=== PATIENT | male | born 1960 | race Hispanic/Latino ===

== ENCOUNTER 2020-02-15 07:08 | Emergency (ER) | payer MEDICAID ==
[2020-02-15] MEDS ORDERED: KETOROLAC 30 MG/1 ML INJ IM ONE (09:30)
--- NOTE | 2020-02-15 09:32 | Emergency Department Report ---
<VESTA GUZMAN S - Last Filed: 02/15/20 15:57> ED Back Pain/Injury HPI - General Chief Complaint: Back Pain/Injury Stated Complaint: BACK PAIN Time Seen by Provider: 02/15/20 09:25 - Related Data Home Medications Medication Instructions Recorded Confirmed Last Taken Methadone [Dolophine] 5 mg PO Q12H 08/11/13 08/11/13 08/11/13 Pregabalin [Lyrica] 150 mg PO TID 08/11/13 08/11/13 08/11/13 Tizanidine HCl [Zanaflex] 2 mg PO TID PRN 08/11/13 08/11/13 08/11/13 traMADoL [Ultram 50 MG tab] 50 mg PO Q6HR PRN 08/11/13 08/11/13 08/11/13 Previous Rx's Medication Instructions Recorded Last Taken Type Pantoprazole [Protonix TAB] 40 mg PO BID #60 tablet 08/12/13 Unknown Rx Allergies Allergy/AdvReac Type Severity Reaction Status Date / Time No Known Allergies Allergy Verified 08/12/13 14:26 ED Past Medical Hx - Medications Home Medications: Home Medications Medication Instructions Recorded Confirmed Last Taken Type Methadone [Dolophine] 5 mg PO Q12H 08/11/13 08/11/13 08/11/13 History Pregabalin [Lyrica] 150 mg PO TID 08/11/13 08/11/13 08/11/13 History Tizanidine HCl [Zanaflex] 2 mg PO TID PRN 08/11/13 08/11/13 08/11/13 History traMADoL [Ultram 50 MG tab] 50 mg PO Q6HR PRN 08/11/13 08/11/13 08/11/13 History Pantoprazole [Protonix TAB] 40 mg PO BID #60 tablet 08/12/13 Unknown Rx ED Course - Consultations Consultation #1: 02/15/20 15:59 I spoke with the vascular surgeon on-call at [facility], Dr. Collins, who accepts the patient for transfer. ED Medical Decision Making - Lab Data Result diagrams: 02/15/20 Unknown 02/15/20 Unknown - Medical Decision Making I went and evaluated the patient. He presented with increased low back pain over the past 24 hours. There is some radiation towards the abdomen but the patient describes it as being secondary to his back pain and dry heaving. The CT angiography of the abdomen and pelvis shows a infrarenal AAA with a maximum diameter of 5.3 cm with an area of concern for impending rupture at the 2 o'clock position anteriorly. I spoke with the vascular surgeon at [facility] who has accepted the patient for transfer to the [facility]. Critical Care Time: Yes Critical care time in (mins) excluding proc time.: 35 Critical care attestation.: Critical care time spent on this patient in doing a physical examination and h istory, evaluation of the x-ray and CT angiography imaging, discussion with the accepting vascular surgeon, and multiple discussions with the patient. Critical Care Time: 35 minutes ED Disposition Clinical Impression: AAA (abdominal aortic aneurysm), Hypertension, Back pain, Leukocytosis, Avascular necrosis of bone of right hip Disposition: DC/TX-70 ANOTHER TYPE HLTHCARE Is pt being admited?: No Condition: Stable Instructions: Hypertension (ED) Referrals: PRIMARY CARE, [Primary Care Provider] - 3-5 Days Time of Disposition: 16:02 <ELEUTERIO REYNOLDS - Last Filed: 02/15/20 16:08> ED Back Pain/Injury HPI - General Source: patient Limitations: No Limitations - History of Present Illness Initial Comments: The patient was evaluated in the emergency department for symptoms described in the history of present illness. He/she was evaluated in the context of the global COVID-19 pandemic, which necessitated consideration that the patient might be at risk for infection with the virus that causes COVID-19. Institu tional protocols and algorithms that pertain to the evaluation of patients at risk for COVID-19 are in a state of rapid change based on information released by regulatory bodies including the CDC and federal and state organizations. These policies and algorithms were followed during the patient's care in the emergency department. Please note that these policies, procedures and recommendations changed on a rapid basis. 59-year-old male presents to the emergency room for lower back pain for the last 24 hours. Patient denies any urinary symptoms no hematuria. Patient states he has been taking his pain medications which consist of Lyrica all TRAM and he is on methadone. Patient states he is used icy hot and cold and heat therapy as well as Tylenol without much relief. Patient denies any trauma denies picking up any heavy objects. Patient denies any past medical history ex cept chronic pain. Currently has no allergies to medications. He has had 14 surgeries on his right leg after an injury. MD Complaint: back pain ED Review of Systems ROS: Stated complaint: BACK PAIN Other details as noted in HPI Comment: All other systems reviewed and negative ED Past Medical Hx - Past Medical History Previous Medical History?: No Hx Congestive Heart Failure: No Hx Diabetes: No Hx Asthma: No Hx COPD: No Additional medical history: Chronic pain - Surgical History Past Surgical History?: Yes Additional Surgical History: 14 surgeries to the right leg after injury - Social History Smoking Status: Current Every Day Smoker Substance Use Type: None ED Physical Exam - General Limitations: No Limitations General appearance: alert, in no apparent distress - Head Head exam: Present: atraumatic, normocephalic - Eye Eye exam: Present: normal appearance - ENT ENT exam: Present: mucous membranes moist - Neck Neck exam: Present: normal inspection, full ROM - Respiratory Respiratory exam: Absent: accessory muscle use - Cardiovascular Cardiovascular Exam: Present: regular rate, normal rhythm. Absent: systolic murmur, diastolic murmur, rubs, gallop - GI/Abdominal GI/Abdominal exam: Present: soft, tenderness (Periumbilicus). Absent: distended - Extremities Exam Extremities exam: Present: normal inspection, full ROM - Back Exam Back exam: Present: full ROM, muscle spasm, paraspinal tenderness - Neurological Exam Neurological exam: Present: alert, oriented X3, normal gait - Psychiatric Psychiatric exam: Present: normal affect, normal mood - Skin Skin exam: Present: warm, dry, intact, normal color. Absent: rash ED Course Vital Signs 02/15/20 02/15/20 02/15/20 07:36 09:36 10:06 Temperature 98.7 F Pulse Rate 62 Respiratory 18 18 18 Rate Blood Pressure 145/92 O2 Sat by Pulse 97 Oximetry 02/15/20 02/15/20 02/15/20 11:15 11:30 11:45 Temperature Pulse Rate 59 L 67 64 Respiratory 9 L 11 L 18 Rate Blood Pressure 164/86 142/82 142/82 O2 Sat by Pulse 98 100 98 Oximetry 02/15/20 02/15/20 02/15/20 12:01 12:30 13:01 Temperature Pulse Rate 65 60 58 L Respiratory 12 13 11 L Rate Blood Pressure 162/81 161/84 162/85 O2 Sat by Pulse 100 97 97 Oximetry ED Medical Decision Making - Lab Data Result diagrams: 02/15/20 Unknown 02/15/20 Unknown Laboratory Tests 02/15/20 02/15/20 02/15/20 Unknown Unknown Unknown WBC 18.4 H RBC 5.00 Hgb 15.7 H Hct 46.4 H MCV 93 MCH 31 MCHC 34 RDW 13.4 Plt Count 249 PT 13.1 INR 0.97 APTT 27.7 Sodium 140 Potassium 3.5 L Chloride 97.3 L Carbon Dioxide 25 Anion Gap 21 BUN 12 Creatinine 0.8 Estimated GFR > 60 BUN/Creatinine Ratio 15 Glucose 112 H Calcium 9.5 Total Bilirubin 0.70 Direct Bilirubin < 0.2 AST 19 ALT 16 Alkaline Phosphatase 106 Total Protein 8.1 Albumin 4.8 Albumin/Globulin Ratio 1.5 - Radiology Data Radiology results: report reviewed [facility] [address] [place] [address] XRay Report Signed Patient: AFIA CERVANTES MR#: [id number] : 1960 Acct:[id number] Age/Sex: 59 / M ADM Date: 02/15/20 Loc: ED Attending Dr: Ordering Physician: TAN KNIGHT Date of Service: 02/15/20 Procedure(s): XR spine lumbosacral 2-3V Accession Number(s): [id number] cc: TAN KNIGHT Fluoro Time In Minutes: LUMBAR SPINE, 3 VIEWS INDICATION / CLINICAL INFORMATION: Lower back pain. COMPARISON: None available. FINDINGS: Vertebral body heights and disc spaces are fairly well-preserved. There is some mild spondylitic change throughout the spine diffusely. No visible fracture or malalignment, however. Of concern is the suggestion of abdominal aortic aneurysm. There is partial calcification of the abdominal aorta so exact measurement is unclear. However, the appearance of the calcification and general fullness in the area of the abdominal aorta may suggest presence of aneurysm and further evaluation with CT abdomen/pelvis with IV contrast, if possible, is recommended. IMPRESSION: 1. Suspect abdominal aortic aneurysm. However this is not confirmed and further evaluation with CT abdomen/pelvis with IV contrast is suggested. 2. Very mild diffuse spondylytic change of the lumbar spine. Signer Name: vEita Schmidt MD Signed: 02/15/2020 10:26 AM Workstation Name: [id number] Transcribed By: JR Dictated By: Evita Schmidt MD Electronically Authenticated By: Evita Schmidt MD Signed Date/Time: 02/15/20 1026 DD/ 1023 TD/TT: Referring Physician:ELEUTERIO REYNOLDSPatient Name:AFIA CERVANTESPatient ID:[id number] of :[id number]:MaleAccession:[id number] Date:[id number] Status:Finalized Findings [facility] [address] [place] [address] Cat Scan Report Signed Patient: AFIA CERVANTES MR#: [id number] : 1960 Acct:[id number] Age/Sex: 59 / M ADM Date: 02/15/20 Loc: ED Attending Dr: Ordering Physician: TAN KNIGHT Date of Service: 02/15/20 Procedure(s): CT angio abdomen pelvis Accession Number(s): [id number] cc: TAN KNIGHT CTA CHEST WITH IV CONTRAST INDICATION / CLINICAL INFORMATION: Acute back pain, lumbar spine showed potential for aortic aneurysm. TECHNIQUE: Axial CT images were obtained through the chest after injection of 100 mL IV contrast. 3 plane MIP and/or 3D reconstructions were produced. All CT scans at this location are performed using CT dose reduction for ALARA by means of automated exposure control. COMPARISON: Prior CT abdomen/pelvis 08/11/2013 FINDINGS: PULMONARY ARTERIES: No pulmonary emboli. THORACIC AORTA: No significant abnormality. No evidence of thoracic aortic aneurysm or dissection. HEART: No significant abnormality. CORONARY ARTERIES: Coronary artery calcification is present. PLEURA: No pleural effusion. No pneumothorax. LYMPH NODES: No significant adenopathy. LUNGS: No acute air space or interstitial disease. ADDITIONAL FINDINGS: None. SKELETAL STRUCTURES: No significant acute osseous abnormality. IMPRESSION: 1. No CT evidence for pulmonary embolism. 2. No acute finding within the thorax. CTA ABDOMEN/PELVIS CLINICAL DATA: Acute back pain for 2 days, concern for aortic aneurysm TECHNICAL DATA: Following dynamic intravenous nonionic contrast infusion, multiple axial helical overlapped CT with multiplanar reconstructions were obtained. All CT data was transferred to a 3D workstation for multiplanar reformation and 3D reconstruction under concurrent physician supervision. All CT scans at this location are performed using CT dose reduction for ALARA by means of automated exposure control. FINDINGS: CTA ABDOMEN PELVIS: There is an infrarenal abdominal aortic aneurysm present. Maximum transverse diameter is 5.3 cm. Aneurysm is approximately 9.4 cm in length. There is large amount of mural thrombus. Aneurysm does not extend to either common iliac artery. There is concern for impending rupture in the 2:00 position of the aneurysm anteriorly. There is loss of the calcific plaque with ill-defined border of the aneurysm as well as some mild inflammatory change in this region. This region corresponds to the origin of the ESTEFANÍA. No free fluid is noted, however. Celiac axis and SMA are widely patent. Both main renal arteries are widely patent. CT ABDOMEN PELVIS: CT abdomen with contrast demonstrates normal appearance of the liver, spleen, pancreas, kidneys, and adrenal glands. No obvious gallbladder pathology or biliary dilatation. GI tract is grossly unremarkable. CT pelvis with contrast demonstrates a mildly enlarged prostate gland. No pelvic mass, free fluid, or focal inflammatory change noted. No acute osseous abnormality noted. There is chronic appearing degenerative change of the right hip with an appearance suggestive of avascular necrosis. IMPRESSION: 1. Infrarenal abdominal aortic aneurysm with maximum transverse diameter of 5.3 cm. There is ill- defined area in the 2:00 position of the aneurysm of concern for the possibility of impending ruptur e in the near future. No evidence of rupture on today's exam. Moderate amount of mural thrombus is present within the aneurysm. 2. Avascular necrosis of the right hip. CRITICAL RESULT: Time of Discovery: 1415 hours STITCH BONDING MACHINE DRAWER IN Time of Communication: 1422 hours STITCH BONDING MACHINE DRAWER IN Licensed Practitioner Receiving Report: ROSA NAVAS Read Back Performed: Yes. Signer Name: Evita Schmidt MD Signed: 02/15/2020 3:30 PM Workstation Name: [id number] Transcribed By: Dictated By: Evita Schmidt MD Electronically Authenticated By: Evita Schmidt MD Signed Date/Time: 02/15/20 1530 DD/ 1511 TD/TT: - Medical Decision Making 59-year-old male presents to the emergency room for lower back pain for the last 24 hours. Patient denies any urinary symptoms no hematuria. Patient states he has been taking his pain medications which consist of Lyrica all TRAM and he is on methadone. Patient states he is used icy hot and cold and heat therapy as well as Tylenol without much relief. Patient denies any trauma denies picking up any heavy objects. Patient denies any past medical history except chronic pain. Currently has no allergies to medications. He has had 14 surgeries on his right leg after an injury. X-ray of the lower lumbar and sacral secondary to pain and patient's age. Toradol 30 mg IM has been ordered. X-ray comes back concern for AAA. Initiation of an IV basic labs with a PT PTT, cardiac monitoring, CTA of chest and abdomen and pelvis. Inform attending Dr. Guzman. Patient has been moved to room 19. Ordered Zofran for nausea. Patient's been given Zofran x2 for nausea just ordered morphine 4 mg IV. Patient will be transferred to [facility] to be followed up with vascular surgeon. Critical care attestation.: If time is entered above; I have spent that time in minutes in the direct care of this critically ill patient, excluding procedure time. ED Disposition Is pt being admited?: No
--- NOTE | 2020-02-15 10:30 | XRay Report ---
LUMBAR SPINE, 3 VIEWS INDICATION / CLINICAL INFORMATION: Lower back pain. COMPARISON: None available. FINDINGS: Vertebral body heights and disc spaces are fairly well-preserved. There is some mild spondylitic snyder ge throughout the spine diffusely. No visible fracture or malalignment, however. Of concern is the suggestion of abdominal aortic aneurysm. There is partial calcification of the abdo nicolas aorta so exact measurement is unclear. However, the appearance of the calcification and general fullness in the area of the abdominal aorta may suggest presence of aneurysm and further evaluation with CT abdomen/pelvis with IV contrast, if possible, is recommended. IMPRESSION: 1. Suspect abdominal aortic aneurysm. However this is not confirmed and further evaluation with CT ab domen/pelvis with IV contrast is suggested. 2. Very mild diffuse spondylytic change of the lumbar spine. Signer Name: Evita Schmidt MD Signed: 02/15/2020 10:26 AM Workstation Name: [id number]
[2020-02-15] MEDS ORDERED: ONDANSETRON 4 MG/2 ML INJ IV ONE ×2 (11:22→14:50)
[2020-02-15 12:09] LABS: Hematocrit 46.4 % (35.5-45.6); Hemoglobin 15.7 gm/dl (11.8-15.2); Mean Corpuscular HGB Conc 34 % (32-34); Mean Corpuscular Volume 93 fl (84-94); Platelet Count 249 K/mm3 (140-440); Red Cell Distribution Width 13.4 % (13.2-15.2)
[2020-02-15 12:18] LABS: INR 0.97 (0.87-1.13)
[2020-02-15 12:20] LABS: Partial Thromboplastin Time 27.7 Sec. (24.2-36.6)
[2020-02-15 12:31] LABS: Alanine Aminotransferase 16 units/L (7-56); Albumin 4.8 g/dL (3.9-5); BUN/Creatinine Ratio 15; Blood Urea Nitrogen 12 mg/dL (9-20); Calcium 9.5 mg/dL (8.4-10.2); Hemolysis Index 15
[2020-02-15 12:33] LABS: Bilirubin,Direct < 0.2 mg/dL (0-0.2)
--- NOTE | 2020-02-15 15:34 | Cat Scan Report ---
CTA CHEST WITH IV CONTRAST INDICATION / CLINICAL INFORMATION: Acute back pain, lumbar spine showed potential for aortic aneurysm. TECHNIQUE: Axial CT images were obtained through the chest after injection of 100 mL IV contrast. 3 plane MIP an d/or 3D reconstructions were produced. All CT scans at this location are performed using CT dose redu ction for ALARA by means of automated exposure control. COMPARISON: Prior CT abdomen/pelvis 08/11/2013 FINDINGS: PULMONARY ARTERIES: No pulmonary emboli. THORACIC AORTA: No significant abnormality. No evidence of thoracic aortic aneurysm or dissection. HEART: No significant abnormality. CORONARY ARTERIES: Coronary artery calcification is present. PLEURA: No pleural effusion. No pneumothorax. LYMPH NODES: No significant adenopathy. LUNGS: No acute air space or interstitial disease. ADDITIONAL FINDINGS: None. SKELETAL STRUCTURES: No significant acute osseous abnormality. IMPRESSION: 1. No CT evidence for pulmonary embolism. 2. No acute finding within the thorax. CTA ABDOMEN/PELVIS CLINICAL DATA: Acute back pain for 2 days, concern for aortic aneurysm TECHNICAL DATA: Following dynamic intravenous nonionic contrast infusion, multiple axial helical overlapped CT with multiplanar reconstructions were obtained. All CT data was transferred to a 3D workstation for multi planar reformation and 3D reconstruction under concurrent physician supervision. All CT scans at this location are performed using CT dose reduction for ALARA by means of automated exposure control. FINDINGS: CTA ABDOMEN PELVIS: There is an infrarenal abdominal aortic aneurysm present. Maximum transverse diameter is 5.3 cm. Aneu rysm is approximately 9.4 cm in length. There is large amount of mural thrombus. Aneurysm does not ex tend to either common iliac artery. There is concern for impending rupture in the 2:00 position of th e aneurysm anteriorly. There is loss of the calcific plaque with ill-defined border of the aneurysm a s well as some mild inflammatory change in this region. This region corresponds to the origin of the ESTEFANÍA. No free fluid is noted, however. Celiac axis and SMA are widely patent. Both main renal arteries are widely patent. CT ABDOMEN PELVIS: CT abdomen with contrast demonstrates normal appearance of the liver, spleen, pancreas, kidneys, and adrenal glands. No obvious gallbladder pathology or biliary dilatation. GI tract is grossly unremarka ble. CT pelvis with contrast demonstrates a mildly enlarged prostate gland. No pelvic mass, free fluid, or focal inflammatory change noted. No acute osseous abnormality noted. There is chronic appearing degenerative change of the right hip w ith an appearance suggestive of avascular necrosis. IMPRESSION: 1. Infrarenal abdominal aortic aneurysm with maximum transverse diameter of 5.3 cm. There is ill-defi alexia area in the 2:00 position of the aneurysm of concern for the possibility of impending rupture in the near future. No evidence of rupture on today's exam. Moderate amount of mural thrombus is present within the aneurysm. 2. Avascular necrosis of the right hip. CRITICAL RESULT: Time of Discovery: 1415 hours CONCRETE SMOOTHER Time of Communication: 1422 hours CONCRETE SMOOTHER Licensed Practitioner Receiving Report: ROSA NAVAS Read Back Performed: Yes. Signer Name: Evita Schmidt MD Signed: 02/15/2020 3:30 PM Workstation Name: [id number]
[2020-02-15] MEDS ORDERED: MORPHINE 4 MG/1 ML INJ IV ONE (16:03)
[2020-02-15 16:16] VITALS: BP 160/85
== END 2020-02-15 17:10 | disposition other institution (70) ==
LOC: ED 07:08
DX: I71.4 Abdominal aortic aneurysm, without rupture (principal); I10 Essential (primary) hypertension; D72.829 Elevated white blood cell count, unspecified; M87.051 Idiopathic aseptic necrosis of right femur; M54.5 Low back pain; F17.200 Nicotine dependence, unspecified, uncomplicated; Z79.899 Other long term (current) drug therapy; Z98.890 Other specified postprocedural states
CPT/HCPCS: 36415; 71275; 72100; 74174; 80048; 80076; 85027; 85610; 85730; 93005; 96372; 96374; 96375; 96376; 99285; J1885; J2270; J2405; Q9967